=== PATIENT | male | born 2000 | race Two or more races ===

== ENCOUNTER 2025-03-11 01:51 | Emergency (ER) | payer MEDICAID, OTHER ==
[~2025-03-11] VITALS: Ht 170.2 cm; Wt 72.7 kg
[2025-03-11 02:27] VITALS: PULSE 124; RESP 10; O2SAT 97
[2025-03-11] MEDS: SODIUM CHLORIDE 0.9% 1,000 ML IV ONE (02:52)
[2025-03-11 03:02] LABS: Basophils # (auto) 0.1 10 ^3/uL (0-0.2); Basophils % (auto) 0.6 % (0.0-2.0); Eosinophils # (auto) 0.2 10 ^3/uL (0-0.8); Nucleated Red Blood Cells % 0.1 %
--- NOTE | 2025-03-11 03:02 | ED.PDOC ---
History of Present Illness HPI Comments 24 y/o M is BIBA for c/o palpitations. Patient endorses on onset of symptoms after taking Gabapentin and smoking 'lots' of marijuana, today, after having surgery performed at [facility] for his esophageal and stomach cancer, recently. Denies any chest pain, palpitations, nausea, vomiting, fever, chills, or further associated symptoms. Chief Complaint: Palpitations Time Seen by MD: 02:40 Reviewed Notes: Nurses Notes, Link Trainer Notes, Medications, Allergies Information Source: Patient, Emergency Med Personnel Mode of Arrival: EMS Severity: Moderate Timing: Hours Duration: Since onset Prehospital treatment: 12 Lead EKG, Commercial Sales Manager Past Medical History PAST MEDICAL HISTORY: Cancer (esophageal and stomach cancer) Past Medical History (Other): DVT Surgical History (Other): esophageal and stomach cancer surgery Social History Smoker: Non-Smoker Alcohol: Denies ETOH Use Drugs: Denies Drug Use Lives In: Home All Other Systems: Reviewed and Negative (Comprehensive systems review obtained and negative except for what is stated in the HPI.) Physical Exam General Appearance: No Apparent Distress, Normal HEENT: Normal ENT Inspection, Pharynx Normal, TMs Normal Neck: Full Range of Motion, Non-Tender, Normal, Normal Inspection Respiratory: Chest Non-Tender, Lungs Clear, No Accessory Muscle Use, No Respiratory Distress, Normal Breath Sounds Cardiovascular: No Edema, No JVD, No Murmur, No Gallop, Normal Peripheral P ulses, Tachycardia, Other (regular rhythm ) Breast Exam: Deferred Gastrointestinal: No Organomegaly, Non Tender, No Pulsatile Mass, Normal Bowel Sounds, Soft, Other (G-tube and abdominal surgical drain) Genitalia: Deferred Pelvic: Deferred Rectal: Deferred Extremities: No calf tenderness, Normal capillary refill, Normal inspection, Normal range of motion, Non-tender, No pedal edema Musculoskeletal : Apperance: Normal Neurologic: Alert, manager linux II-XII nml as Tested, No Motor Deficits, Normal Affect, Normal Mood, No Sensory Deficits Cerebellar Function: Normal Reflexes: Normal Skin: Dry, Normal Color, Warm Lymphatic: No Adenopathy Was a procedure done? Was a procedure done?: No EKG EKG : Pulse Rate (adult): 134 [place]: Normal Cardiac Rhythm: ST Block: None Hypertrophy: None ST: Normal Differential Dx Considerations may include: medication adverse effect, substance abuse/dependency, viral syndrome, post-op complication, among others X-Ray, Labs, Meds, VS Vital Signs Date Time Temp Pulse Resp B/P (MAP) Pulse Ox O2 Delivery O2 Flow Rate FiO2 03/11/25 04:00 86 03/11/25 04:00 98.7 85 9 112/53 (72) 94 98.7 03/11/25 03:02 134 03/11/25 02:27 99.4 124 10 144/66 (92) 97 99.4 03/11/25 02:27 124 10 97 Room Air* 0 21 03/11/25 02:10 134 03/11/25 02:00 98.7 148 24 132/58 (82) 99 98.7 Lab Test 03/11/25 03:45 03/11/25 03:00 03/11/25 02:45 Range/Units Troponin I High Sensitivity 3 L < 3 L </=54 ng/L Urine Color Light-yellow Yellow Urine Clarity Clear Clear Urine pH 6.0 5.0-9.0 Urine Specific [place] 1.008 1.001-1.035 Urine Protein Negative Negative Urine Ketones Negative Negative Urine Blood Negative Negative /uL Urine Nitrite Negative Negative Urine Bilirubin Negative Negative Urine Urobilinogen Normal Negative mg/dL Urine Leukocyte Esterase Negative Negative /uL Urine RBC <1 0 - 3 /hpf Urine Microscopic WBC 2 0-3 /HPF Urine Squamous Epithelial Cells Few <5 /hpf Urine Bacteria None seen None Seen /hpf Urine Glucose Normal Normal mg/dL White Blood Count 13.0 H 4.4-10.8 10^3/uL Red Blood Count 3.70 L 4.5-5.90 10^6/uL Hemoglobin 9.9 L 13.5-17.5 g/dL Hematocrit 30.7 L 41.0-53.0 % Mean Corpuscular Volume 83.0 80.0-100.0 fL Mean Corpuscular Hemoglobin 26.9 L 28.0-32.0 pg Mean Corpuscular Hemoglobin Concent 32.4 32.0-36.0 g/dL Red Cell Distribution Width 17.4 H 11.8-14.3 % Platelet Count 690 H 140-450 10^3/uL Mean Platelet Volume 8.2 6.9-10.8 fL Neutrophils (%) (Auto) 87.6 H 37.0-80.0 % Lymphocytes (%) (Auto) 3.4 L 10.0-50.0 % Monocytes (%) (Auto) 7.2 0.0-12.0 % Eosinophils (%) (Auto) 1.2 0.0-7.0 % Basophils (%) (Auto) 0.6 0.0-2.0 % Neutrophils # (Auto) 11.4 H 1.6-8.6 10 ^3/uL Lymphocytes # (Auto) 0.4 0.4-5.4 10 ^3/uL Monocytes # (Auto) 0.9 0-1.3 10 ^3/uL Eosinophils # (Auto) 0.2 0-0.8 10 ^3/uL Basophils # (Auto) 0.1 0-0.2 10 ^3/uL Nucleated Red Blood Cells 0.1 % Sodium Level 140 136-145 mmol/L Potassium Level 4.2 3.5-5.1 mmol/L Chloride Level 104 98-107 mmol/L Carbon Dioxide Level 27 20-31 mmol/L Anion Gap 9 5-15 Blood Urea Nitrogen 16 9-23 mg/dL Creatinine 1.00 0.700-1.30 mg/dL Glomerular Filtration Rate Calc 107 >90 mL/min BUN/Creatinine Ratio 16.0 10.0-20.0 Serum Glucose 120 H 74-106 mg/dL Calcium Level 8.5 L 8.7-10.4 mg/dL Current Medications Medications (Trade) Dose Ordered Sig/Ronda Route Start Time Stop Time Status Last Admin Sodium Chloride 1,000 ml @ 1,000 mls/hr Q1H ONCE IV 03/11/25 02:45 03/11/25 03:44 DC 03/11/25 02:52 Time of 1ST Reevaluation: 03:15 Reevaluation 1ST: Unchanged Patient Education/Counseling: Diagnosis, Treatment Family Education/Counseling: No Family Present Additional Information Previous visits reviewed: N/A The following tests were ordered, and results were reviewed by me: CBC, BMP, EKG, troponin Additional Information was gathered from interviewing the following independent historians: EMS I reviewed and agreed with the following test results read by other providers: N/A I discussed treatment and results with medical personnel and: patient SEPSIS Sepsis Screen Date sepsis recognized/suspect: Mar 11, 2025 Time Sepsis recognized/suspect: 020 Recent Procedure: No On Antibiotic Therapy: No Respiratory Rate >20: Yes Heart Rate >90: Yes Temp<36 C (96.8 F) or >38.3 C: No SBP <90 or MAP <65 mmHG: No New Acute Mental Status Change: No Is the patient on CPAP, BIPAP,: No Physician Orders Electrocardigram (03/11/25 02:15) Troponin-I Hs (03/11/25 05:15) Electrocardigram (03/11/25 03:15) Electrocardigram (03/11/25 05:15) Commercial Sales Manager (03/11/25 ) Vital Signs Date Time Temp Pulse Resp B/P (MAP) Pulse Ox O2 Delivery O2 Flow Rate FiO2 03/11/25 04:00 86 03/11/25 04:00 98.7 85 9 112/53 (72) 94 98.7 03/11/25 03:02 134 03/11/25 02:27 99.4 124 10 144/66 (92) 97 99.4 03/11/25 02:27 124 10 97 Room Air* 0 21 03/11/25 02:10 134 03/11/25 02:00 98.7 148 24 132/58 (82) 99 98.7 Laboratory Tests Test 03/11/25 02:45 White Blood Count 13.0 10^3/uL (4.4-10.8) H Medications Medications Dose Ordered Sig/Ronda Route Start Time Stop Time Status Last Admin Dose Admin Sodium Chloride 1,000 ml @ 1,000 mls/hr Q1H ONCE IV 03/11/25 02:45 03/11/25 03:44 DC 03/11/25 02:52 Departure 1 Departure Time of Disposition: 05:29 (Discussed with the patient the patient's mom and patient's labs are better than has a recent admission at [place]. Patient has a nurse for status home later today. Patient is feeling well with compromise vitals and would like to go home. We will discharge patient home with outpatient follow up) Impression: Primary Impression: Palpitations Disposition: 01 HOME / SELF CARE / HOMELESS Condition: Stable Additional Instructions: It is important to follow up with your home visit today. If your symptoms worsen or if any other concerns please return to the emergency room. Discharged With: Regional Service Manager Critical Care Note Critical Care Time?: No Stability Stability form required: No Heart Score Heart Score: Heart Score Response (Comments) Value History Moderate Suspicious 1 EKG Normal 0 Age <45 0 Risk Factors 1 or 2 risk factors 1 Troponin N/A 0 Total 2 I personally scribed for SHAUNA DICKINSON MD ([email or web address]) on 03/11/25 at 03:02. Electronically submitted by Keron Holden [email or web address]). SHAUNA DICKINSON MD Mar 11, 2025 03:02
[2025-03-11 03:04] LABS: Eosinophils % (auto) 1.2 % (0.0-7.0); Hematocrit 30.7 % (41.0-53.0); Hemoglobin 9.9 g/dL (13.5-17.5); Lymphocytes # (auto) 0.4 10 ^3/uL (0.4-5.4); Lymphocytes % (auto) 3.4 % (10.0-50.0); Mean Corpuscular Hemoglobin 26.9 pg (28.0-32.0); Mean Corpuscular Hgb Conc. 32.4 g/dL (32.0-36.0); Monocytes # (auto) 0.9 10 ^3/uL (0-1.3); Monocytes % (auto) 7.2 % (0.0-12.0); Neutrophils # (auto) 11.4 10 ^3/uL (1.6-8.6); Neutrophils % (auto) 87.6 % (37.0-80.0); Platelet Count (auto) 690 10^3/uL (140-450); Red Cell Distribution Width 17.4 % (11.8-14.3)
[2025-03-11 03:12] LABS: Chloride 104 mmol/L (98-107); Potassium 4.2 mmol/L (3.5-5.1); Sodium 140 mmol/L (136-145)
[2025-03-11 03:13] LABS: Anion Gap 9 (5-15); Carbon Dioxide 27 mmol/L (20-31)
[2025-03-11 03:18] LABS: Blood Urea Nitrogen 16 mg/dL (9-23)
[2025-03-11 03:25] LABS: Calcium 8.5 mg/dL (8.7-10.4); Glucose 120 mg/dL (74-106)
[2025-03-11 03:43] LABS: Urine Bacteria None Seen /hpf (None Seen)
[2025-03-11 04:00] VITALS: TEMP 98.7
[2025-03-11 04:07] LABS: Urine Blood Negative /uL (Negative); Urine Clarity Clear (Clear); Urine Color Light-Yellow (Yellow); Urine Protein, UAD Negative (Negative); Urine Specific Gravity 1.008 (1.001-1.035); Urine Squamous Epithelial Cell FEW /hpf (<5); Urine Urobilinogen Normal (Negative); Urine WBC 2 /HPF (0-3)
[2025-03-11 05:00] VITALS: BP 112/62; PULSE 87; RESP 16; O2SAT 93
--- NOTE | 2025-03-11 07:10 | ECG ---
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
== END 2025-03-11 06:08 | disposition home or self-care (01) ==
LOC: EDBD 01:51 → ER 01:51
DX: R00.2 Palpitations (principal); Z85.028 Personal history of other malignant neoplasm of stomach; Z86.718 Personal history of other venous thrombosis and embolism
CPT/HCPCS: 36415; 80048; 81001; 84484; 85025; 93005; 96360; 99285; J7030